=== PATIENT | female | born 1965 | race Caucasian/White ===

== ENCOUNTER 2017-05-12 10:37 | Day surgery (SDC) | payer OTHER ==
[~2017-05-12] VITALS: Ht 162.6 cm; Wt 83.7 kg
[~2017-05-12 10:37] MED LIST: ALBUTEROL INHALER PO; ATOR40TA PO; CETI10TA24 PO; DIAZ10TA4 PO; LANS30CA60 PO; LEVO125T5 PO; LEVO150T5 PO; MONT10TA6 PO; ROPI0.5T PO; TOPAMAX PO; ZOLOFT PO
[2017-05-12] MEDS ORDERED: LACTATED RINGERS 1,000 ML IV SCH (11:59)
[2017-05-12] MEDS ORDERED: TOPI50TA35 PO (12:04)
[2017-05-12] MEDS ORDERED: CYCL1DRO IO (12:04)
[2017-05-12 12:11] VITALS: BP 111/76
[2017-05-12] MEDS ORDERED: PLEASE ENTER HEIGHT AND WEIGHT MC SCH (12:30)
[2017-05-12] MEDS ORDERED: LIDOCAINE-MPF 2% ,5ML ONE (13:53)
[2017-05-12] MEDS ORDERED: PROPOFOL 10 MG/ML, 20ML ONE (13:53)
[2017-05-12] MEDS ORDERED: CIPROFLOXACIN/PMX 400MG/200ML 200 ML ONE (14:08)
[2017-05-12] MEDS ORDERED: FENTANYL PF 100 MCG/2ML ONE (14:17)
[2017-05-12] MEDS ORDERED: OMNIPAQUE 350 MG/ML, 50 ML BOTTLE IV ONE (14:30)
[2017-05-12] MEDS ORDERED: HYDROcodone/APAP 7.5-325MG/15ML UDC PO PRN (14:30)
[2017-05-12] MEDS ORDERED: ACETAMINOPHEN 325 MG TABLET PO PRN (14:30)
[2017-05-12] MEDS ORDERED: FENTANYL PF 100 MCG/2ML IV PRN (14:30)
[2017-05-12] MEDS ORDERED: ONDANSETRON 2MG/ML, 2ML IVPush PRN (14:30)
[2017-05-12] MEDS ORDERED: morphine SULFATE 10 MG/ML, 1ML IV PRN (14:30)
[2017-05-12] MEDS ORDERED: ONDANSETRON 2MG/ML, 2ML ONE (14:46)
[2017-05-12] MEDS ORDERED: DEXAMETHASONE 4 MG/ML, 1ML ONE ×2 (14:46)
[2017-05-12] MEDS ORDERED: OMNIPAQUE 350 MG/ML, 50 ML BOTTLE ONE (14:52)
[2017-05-12] MEDS ORDERED: HYDROcodone/APAP 7.5-325MG/15ML UDC ONE (15:10)
== END 2017-05-12 17:20 ==
LOC: OUT 10:37
PROVIDERS: ATTEND Urology
DX: N20.2 Calculus of kidney with calculus of ureter (principal); E78.5 Hyperlipidemia, unspecified; E03.9 Hypothyroidism, unspecified; K21.9 Gastro-esophageal reflux disease without esophagitis; F32.9 Major depressive disorder, single episode, unspecified; J45.909 Unspecified asthma, uncomplicated; E66.9 Obesity, unspecified; Z68.31 Body mass index [BMI] 31.0-31.9, adult; Z79.82 Long term (current) use of aspirin; Z88.1 Allergy status to other antibiotic agents; Z88.0 Allergy status to penicillin; Z88.8 Allergy status to other drugs, medicaments and biological substances; Z86.19 Personal history of other infectious and parasitic diseases; Z87.39 Personal history of other diseases of the musculoskeletal system and connective tissue
CPT/HCPCS: 52356; 74420; 82360; 88300; C1758; C2617; J0744; J1100; J2405; J2704; J3010; J3490; J7120; Q9967

== ENCOUNTER → 2017-06-27 | Outpatient (CLI) | payer OTHER ==
[~2017-06-27] MED LIST changes: +ASTHMA INHALER PO; +CYCL1DRO IO; +DICL25PO15 PO; +DIVA250T4 PO; +ERGO500017 PO; +FEXO1TAB25 PO; +LEVO112T4 PO; +POLY1DRO EACHEYE; +TOPI50TA35 PO
[2017-06-27 13:46] LABS: MICROSCOPIC INDICATED
== END | disposition home or self-care (01) ==
LOC: STAR 12:30
PROVIDERS: ATTEND Urology
DX: Z01.818 Encounter for other preprocedural examination (principal); N20.2 Calculus of kidney with calculus of ureter
CPT/HCPCS: 81001; 87086

== ENCOUNTER 2017-07-01 10:17 | Day surgery (SDC) | payer OTHER ==
[~2017-07-01] VITALS: Ht 162.6 cm; Wt 88.6 kg
[2017-07-01 10:50] VITALS: BP 113/84
[2017-07-01] MEDS ORDERED: SERT100T PO (11:02)
[2017-07-01] MEDS: LACTATED RINGERS 1,000 ML IV SCH ×2 (11:10→16:09)
[2017-07-01] MEDS ORDERED: MIDAZOLAM 1 MG/ML, 2ML ONE (11:17)
[2017-07-01] MEDS ORDERED: FENTANYL PF 250 MCG/5ML ONE (11:17)
[2017-07-01] MEDS ORDERED: ROCURONIUM 10 MG/ML,10ML ONE (11:20)
[2017-07-01] MEDS ORDERED: PROPOFOL 10 MG/ML, 20ML ONE (11:20)
[2017-07-01] MEDS ORDERED: NEOSTIGMINE 1 MG/ML, 10ML ONE (11:21)
[2017-07-01] MEDS ORDERED: GLYCOPYRROLATE 0.4 MG/2 ML, 2ML ONE (11:21)
[2017-07-01] MEDS ORDERED: SODIUM CHLORIDE 0.9% PF 10ML ONE (11:22)
[2017-07-01] MEDS ORDERED: CEFAZOLIN 1,000 MG ONE ×2 (11:22→11:23)
[2017-07-01] MEDS ORDERED: DEXAMETHASONE 4 MG/ML, 1ML ONE ×2 (11:24)
[2017-07-01] MEDS ORDERED: ONDANSETRON 2MG/ML, 2ML ONE (11:24)
[2017-07-01] MEDS ORDERED: HYDROmorphone 1 MG/ML, 1ML IV PRN (14:00)
[2017-07-01] MEDS ORDERED: LABETALOL 5MG/ML, 20ML IV PRN (14:00)
[2017-07-01] MEDS ORDERED: PROMETHAZINE 12.5 MG SUPP PR PRN (14:00)
[2017-07-01] MEDS ORDERED: morphine SULFATE 10 MG/ML, 1ML IV PRN (14:00)
[2017-07-01] MEDS ORDERED: OXYcodone 5 MG/5 ML ORAL.SOL UDC PO PRN (14:00)
[2017-07-01] MEDS ORDERED: ACETAMINOPHEN 325 MG TABLET PO PRN (14:00)
[2017-07-01] MEDS ORDERED: PROMETHAZINE 25 MG/ML, 1ML IV PRN (14:00)
[2017-07-01] MEDS ORDERED: MEPERIDINE/PF 25MG/0.5ML IVPush PRN (14:00)
[2017-07-01] MEDS ORDERED: hydrALAzine 20 MG/ML, 1ML IV PRN (14:00)
[2017-07-01] MEDS ORDERED: ONDANSETRON 2MG/ML, 2ML IVPush PRN (14:00)
[2017-07-01] MEDS ORDERED: ACETAMINOPHEN 650 MG/20.3 ML UDC ONE (15:42)
[2017-07-01] MEDS ORDERED: OXYcodone 5 MG/5 ML ORAL.SOL UDC ONE (15:42)
[2017-07-01] MEDS ORDERED: FENTANYL PF 100 MCG/2ML ONE (15:42)
[2017-07-01] MEDS: FENTANYL PF 100 MCG/2ML IV PRN ×3 (15:50→16:08)
== END 2017-07-01 18:57 ==
LOC: OUT 10:17
PROVIDERS: ATTEND Urology
DX: N20.0 Calculus of kidney (principal); E78.5 Hyperlipidemia, unspecified; J45.909 Unspecified asthma, uncomplicated; G47.33 Obstructive sleep apnea (adult) (pediatric); Z79.82 Long term (current) use of aspirin; Z88.0 Allergy status to penicillin; Z87.898 Personal history of other specified conditions; Z88.1 Allergy status to other antibiotic agents; Z88.8 Allergy status to other drugs, medicaments and biological substances
CPT/HCPCS: 52356; 74018; 76000; 82360; 88300; C1758; C2617; J0690; J1100; J2250; J2405; J2704; J2710; J3010; J7120